=== PATIENT | male | born 1975 | race Asian ===

== ENCOUNTER 2024-07-09 21:20 | Emergency (ER) | payer SELFPAY ==
[~2024-07-09] VITALS: Ht 162.6 cm; Wt 61.7 kg
[2024-07-09 21:22] VITALS: PULSE 55; RESP 18; TEMP 98.4
[2024-07-09] MEDS ORDERED: BACTRIM DS TAB1 EACH PO (21:55)
[2024-07-09 22:24] VITALS: BP 131/62; PULSE 73; RESP 18; TEMP 98.2; O2SAT 98
== END 2024-07-09 22:00 | disposition home or self-care (01) ==
LOC: FSED 21:49
DX: L02.212 Cutaneous abscess of back [any part, except buttock and flank] (principal)
CPT/HCPCS: 99284